=== PATIENT | female | born 1930 | race Caucasian/White ===

== ENCOUNTER 2020-07-18 15:12 | Inpatient (IN) | payer MEDICARE, OTHER ==
[~2020-07-18] VITALS: Ht 152.4 cm; Wt 54.8 kg
[2020-07-18] MEDS ORDERED: LOPID 600M600 MG/TAB PO (20:06)
[2020-07-18] MEDS ORDERED: HYDRODIURIL50 MG PO (20:07)
[2020-07-18] MEDS ORDERED: MINIPRESS 1M1 MG/CAP PO (20:10)
[2020-07-18] MEDS ORDERED: ALDACTONE 25MG25 M1 PO (20:10)
[2020-07-18] MEDS ORDERED: COUMADIN 2MG2 MG/TAB PO (20:13)
[2020-07-18] MEDS ORDERED: TYLENOL 325MG325 MG PO (20:18)
[2020-07-18] MEDS ORDERED: TYLENOL W/COD1 UDTAB PO (20:20)
[2020-07-18] MEDS ORDERED: ASPIRIN 81M81 MG/TA2 PO (20:53)
[2020-07-18] MEDS ORDERED: LIPITOR20 MG PO (20:53)
[2020-07-18] MEDS ORDERED: PLAVIX 75MG TAB75 MG PO (20:54)
[2020-07-18] MEDS ORDERED: NITROSTAT0.4 MG/TAB SL (20:55)
[2020-07-18] MEDS ORDERED: ZOFRAN INJ4 MG/2 ML IV (20:56)
[2020-07-18] MEDS ORDERED: ICAPS TABLET1 EACH PO (20:57)
[2020-07-18] MEDS ORDERED: MELATONIN1 MG PO (20:58)
[2020-07-18 21:00] VITALS: BP 151/71; PULSE 71; TEMP 98.2
[2020-07-18 23:19] VITALS: BP 147/51; PULSE 67; TEMP 97.6
[2020-07-19] VITALS (21 sets, daily range): BP systolic 126–176; BP diastolic 49–88; PULSE 53–65; TEMP 97.6–98.4
[2020-07-19 06:50] LABS: BASO # 0.1 (0.0-0.2); BASO % 0.9 % (0.0-2.0); EOS # 0.3 (0.0-0.7); GRAN # 9.2 (1.4-6.5); GRAN % 64.9 % (42.2-75.2); HEMOGLOBIN 13.5 g/dl (12.5-16.0); LYMPH # 3.6 (1.2-3.4); LYMPH % 25.1 % (20.0-51.0); MEAN CELL VOLUME 93 fl (80.0-100.0); MEAN CORPUSCULAR HEMOGLOBIN 31 pg (27.0-31.0); MEAN CORPUSCULAR HGB CONC 33 g/dl (33.0-37.0); MONO % 6.7 % (1.7-9.3); PLATELET COUNT 227 K/mm3 (130-400); REDCELL DISTRIBUTION WIDTH-CV 13.1 % (11.5-14.5)
[2020-07-19 06:56] LABS: ALBUMIN 4.5 gm/dL (3.5-5.0); BILIRUBIN,TOTAL 0.7 mg/dL (0.0-1.0); CALCIUM 9.9 mg/dL (8.4-10.2); CREATININE, serum 1.67 (0.52-1.25); POTASSIUM 4.3 mmol/L (3.4-5.0); TOTAL PROTEIN 7.7 gm/dL (6.4-8.2)
[2020-07-19 07:20] LABS: INR 1.9 (0.8-3.0); PROTHROMBIN TIME 21.9 SECONDS (9.7-12.8)
[2020-07-19 07:23] LABS: PARTIAL THROMBOPLASTIN TIME 39.8 SECONDS (26.0-37.0)
[2020-07-20 00:43] VITALS: BP 124/37; PULSE 58; TEMP 98.1
[2020-07-20 04:21] VITALS: BP 126/56; PULSE 65; TEMP 98
[2020-07-20 04:55] VITALS: BP 126/56; PULSE 65; TEMP 98
[2020-07-20 07:18] LABS: CALCIUM 9.2 mg/dL (8.4-10.2); CREATININE, serum 1.5 (0.52-1.25); POTASSIUM 4.1 mmol/L (3.4-5.0)
[2020-07-20 08:00] VITALS: BP 129/73; PULSE 62; TEMP 97.9
[2020-07-20] MEDS ORDERED: COREG 3.123.125 MG/T PO (10:19)
[2020-07-20] MEDS ORDERED: PLAVIX 75MG TAB75 MG PO (10:19)
[2020-07-20] MEDS ORDERED: ASPIRIN 81M81 MG/TA2 PO (10:20)
[2020-07-20] MEDS ORDERED: LIPITOR20 MG PO (10:21)
[2020-07-20 11:55] VITALS: BP 122/80; PULSE 66; TEMP 98.2
== END 2020-07-20 12:00 | disposition home or self-care (01) | DRG 246 ==
LOC: MEDICAL 15:12
PROVIDERS: Hospitalist; Physician Assistant; ADMIT Internal Medicine
PROC: 027034Z Dilation of Coronary Artery, One Artery with Drug-eluting Intraluminal Device, Percutaneous Approach (ICD-10-PCS; principal; 2020-07-18)
PROC: 4A023N7 Measurement of Cardiac Sampling and Pressure, Left Heart, Percutaneous Approach (ICD-10-PCS; 2020-07-18)
PROC: B211YZZ Fluoroscopy of Multiple Coronary Arteries using Other Contrast (ICD-10-PCS; 2020-07-18)
DX: I21.4 Non-ST elevation (NSTEMI) myocardial infarction (principal); I50.21 Acute systolic (congestive) heart failure; N18.30 Chronic kidney disease, stage 3 unspecified; E78.5 Hyperlipidemia, unspecified; I25.10 Atherosclerotic heart disease of native coronary artery without angina pectoris; I11.0 Hypertensive heart disease with heart failure; I65.21 Occlusion and stenosis of right carotid artery; Z95.5 Presence of coronary angioplasty implant and graft; Z79.01 Long term (current) use of anticoagulants; Z87.891 Personal history of nicotine dependence; Z88.0 Allergy status to penicillin
CPT/HCPCS: 99222-AI; 99232-AI; 99239; C1725; C1769; C1874; C1887; C9600; J1644; J2250; J3010; J7030

== ENCOUNTER 2020-09-23 10:16 | Inpatient (IN) | payer MEDICARE, OTHER ==
[~2020-09-23] VITALS: Ht 152.4 cm; Wt 55.1 kg
[~2020-09-23 10:16] MED LIST: ALDACTONE 25MG25 M1 PO; ASPIRIN 81M81 MG/TA2 PO; COREG 3.123.125 MG/T PO; COUMADIN 2MG2 MG/TAB PO; HYDRODIURIL50 MG PO; ICAPS TABLET1 EACH PO; LIPITOR20 MG PO; LOPID 600M600 MG/TAB PO; MELATONIN1 MG PO; MINIPRESS 1M1 MG/CAP PO; NITROSTAT0.4 MG/TAB SL; PLAVIX 75MG TAB75 MG PO; TYLENOL 325MG325 MG PO; TYLENOL W/COD1 UDTAB PO; ZOFRAN INJ4 MG/2 ML IV
[2020-09-23 10:41] LABS: BASO # 0.1 (0.0-0.2); BASO % 0.9 % (0.0-2.0); EOS # 0.3 (0.0-0.7); EOS % 2.5 % (0-4.0); GRAN # 6.9 (1.4-6.5); GRAN % 65.8 % (42.2-75.2); HEMATOCRIT 41.5 % (37.0-47.0); HEMOGLOBIN 13.7 g/dl (12.5-16.0); LYMPH # 2.5 (1.2-3.4); MEAN CELL VOLUME 95 fl (80.0-100.0); MEAN CORPUSCULAR HEMOGLOBIN 31 pg (27.0-31.0); MEAN CORPUSCULAR HGB CONC 33 g/dl (33.0-37.0); MEAN PLATELET VOLUME 12.3 fl (7.4-10.4); MONO # 0.7 (0.1-0.6); MONO % 6.5 % (1.7-9.3); PLATELET COUNT 216 K/mm3 (130-400); RED BLOOD COUNT 4.38 M/mm3 (4.10-5.30); REDCELL DISTRIBUTION WIDTH-CV 12.6 % (11.5-14.5)
[2020-09-23 10:54] LABS: INR 1.1 (0.8-3.0); PROTHROMBIN TIME 12.4 SECONDS (9.7-12.8)
[2020-09-23 10:56] LABS: PARTIAL THROMBOPLASTIN TIME 29.7 SECONDS (26.0-37.0)
[2020-09-23 11:01] LABS: ALBUMIN 4.7 gm/dL (3.5-5.0); BILIRUBIN,TOTAL 0.8 mg/dL (0.0-1.0); CALCIUM 9.9 mg/dL (8.4-10.2); CREATININE, serum 1.89 (0.52-1.25); POTASSIUM 3.8 mmol/L (3.4-5.0)
[2020-09-23 11:15] LABS: TROPONIN-I 0.195 ng/mL (0.000-0.035)
[2020-09-23 13:23] VITALS: BP 173/82; PULSE 58; TEMP 96.4
[2020-09-23] MEDS ORDERED: LASIX 20MG TABL20 MG PO ×2 (13:57→13:58)
[2020-09-23] MEDS ORDERED: COREG 6.256.25 MG/TA PO (14:16)
[2020-09-23 15:57] VITALS: BP 149/59; PULSE 51
--- NOTE | 2020-09-23 19:00 | NUR ---
Patient admittied to floor around 1330. Oriented to room. She has had heparin infusing at ordered rate. Last Hepxa was elevted. Turned drip off and reduced rate to 5ml an hour per protocol. Her IV in her Left wrist infiltrated earlier and now she has a large bruise to her left hand. New IV to right forearm. Her daughter was updated this evening. Dr Andrade seen patient and stated plans to just observe her for tonight. No other changes at this time. Call light within reach. Bed alarm on.
--- NOTE | 2020-09-23 19:21 | NUR ---
HOSPITALIST GAYATRI TRAN NOTIFIED AT 191 OF CRITICAL TROPONIN, ORDER TO CALL TIP STITCHER DENTAL AIDE. TIP STITCHER DENTAL AIDE DR. HALL NOTIFIED AT 192. ORDER FROM DR. HALL TO MAKE PATIENT NPO AT MIDNIGHT. ORDER COMPLETED.
[2020-09-23 20:02] VITALS: BP 136/60; PULSE 64; TEMP 97.8
[2020-09-23 23:33] LABS: ARTERIAL BLD GAS O2 SATURATION 95.8 % (92-100); ARTERIAL BLD GAS TCO2 CT 27.6; ARTERIAL BLOOD GAS BASE EXCESS 4.1 (-2-2); ARTERIAL BLOOD GAS HCO3 26.5 meq/L (22-26); ARTERIAL BLOOD GAS PCO2 33.1 mmHg (35-45); ARTERIAL BLOOD GAS PO2 75.6 mmHg (80-100); ARTERIAL BLOOD GAS pH 7.52 (7.35-7.45)
[2020-09-23 23:46] LABS: HEMOGLOBIN 12.6 g/dl (12.5-16.0); MEAN CELL VOLUME 92 fl (80.0-100.0); MEAN CORPUSCULAR HEMOGLOBIN 32 pg (27.0-31.0); MEAN CORPUSCULAR HGB CONC 34 g/dl (33.0-37.0); MEAN PLATELET VOLUME 12.4 fl (7.4-10.4); PLATELET COUNT 207 K/mm3 (130-400); RED BLOOD COUNT 3.99 M/mm3 (4.10-5.30); REDCELL DISTRIBUTION WIDTH-CV 12.8 % (11.5-14.5)
[2020-09-23 23:52] LABS: HEMATOCRIT 36.7 % (37.0-47.0)
[2020-09-23 23:52] LABS: CALCIUM 9.8 mg/dL (8.4-10.2); CREATININE, serum 1.82 (0.52-1.25); POTASSIUM 3.5 mmol/L (3.4-5.0)
[2020-09-23 23:56] LABS: INR 1.1 (0.8-3.0); PROTHROMBIN TIME 12.5 SECONDS (9.7-12.8)
[2020-09-23 23:58] LABS: PARTIAL THROMBOPLASTIN TIME 56.5 SECONDS (26.0-37.0)
[2020-09-24] VITALS (292 sets, daily range): BP systolic 119–153; BP diastolic 46–81; PULSE 51–67; TEMP 97.5–98.5; O2SAT 77–100
--- NOTE | 2020-09-24 00:48 | NUR ---
AT 0034 NOTIFIED GAYATRI TRAN OF CRITICAL D-DIMER OF 239. NO NEW ORDERS AT THIS TIME.
--- NOTE | 2020-09-24 04:14 | NUR ---
AT 0123 ON 09/24/20 PATIENT REPORTED SHE WAS HAVING CHEST PAIN. RAISED THE HEAD OF PATIENTS BED AND SHE STATED THAT MADE HER FEEL BETTER. V/S TAKEN AND WERE WNL, JOSE FRANCISCO TRAN NOTIFIED AND SAID TO GIVE THE PATIENT A NITRO. NITRO ADMINISTERED AT 0128. 0150 PATIENT STATED SHE WAS FEELING BETTER AND WANTED TO GET SOME REST.
[2020-09-24 06:28] LABS: BASO # 0.1 (0.0-0.2); EOS # 0.5 (0.0-0.7); EOS % 5.2 % (0-4.0); GRAN # 5.7 (1.4-6.5); GRAN % 56.6 % (42.2-75.2); HEMATOCRIT 37.6 % (37.0-47.0); HEMOGLOBIN 12.5 g/dl (12.5-16.0); LYMPH # 2.9 (1.2-3.4); LYMPH % 29.3 % (20.0-51.0); MEAN CELL VOLUME 93 fl (80.0-100.0); MEAN CORPUSCULAR HEMOGLOBIN 31 pg (27.0-31.0); MEAN CORPUSCULAR HGB CONC 33 g/dl (33.0-37.0); MEAN PLATELET VOLUME 12.8 fl (7.4-10.4); MONO # 0.8 (0.1-0.6); MONO % 7.6 % (1.7-9.3); PLATELET COUNT 206 K/mm3 (130-400); RED BLOOD COUNT 4.05 M/mm3 (4.10-5.30); REDCELL DISTRIBUTION WIDTH-CV 12.8 % (11.5-14.5)
[2020-09-24 06:38] LABS: CALCIUM 9.6 mg/dL (8.4-10.2); CREATININE, serum 1.78 (0.52-1.25); POTASSIUM 4.3 mmol/L (3.4-5.0)
--- NOTE | 2020-09-24 07:56 | NUR ---
Assessment complete. Patient sitting up in bed at this time. Used the restroom, ambulated well via SB assist. States she does not have chest pain unless she is laying down or right after she gets back into bed after moving around. She currently states that he pain has subsided. No SOB. She is aware of her POC. Heparin drip continues to run at this time. Will continue to monitor. Call light is in reach.
--- NOTE | 2020-09-24 09:30 | NUR ---
Patient experiencing chest pain at this time. On entry patient is holding chest and is visibly feeling short of breath. PRN nitro was provided to the patient. Chest pain subsided within 5 mins of administration and patient became comfortable. Vitals were stable at thsi time. Informed patient to report the return of this pain. No further needs. Will continue to monitor. Call light is in reach.
--- NOTE | 2020-09-24 10:21 | NUR ---
FRANCHESCA met with the patient to discuss discharge plan. The patient lives alone in [place]. Her 14 days ago. She states that her daughter, Shireen (ph#[phone]), and son-in-law live 10 miles away from her. She reports independence with ADLs and does not have any DME. She has been receiving cardiac rehab at [facility]. The patient's PCP is Dr. Carter Recinos and she receives her medications from [facility]. She reports no difficulties obtaining her meds. The patient's DPOA-HC is in EMR and it designates her daughter, Shireen, and son-in-law, Ulices. SW discussed continuing cardiac rehab vs home health. The patient states that she is unsure what she wants to do right now and would like to wait until after she has her cardiac cath to decide. FRANCHESCA then contacted and reviewed the d/c plan with the patient's daughter, Shireen. Shireen reports that she would prefer for the patient to stop cardiac rehab for now and do home health instead. Shireen plans to talk to the patient about this. FRANCHESCA will need to follow up with the patient.
--- NOTE | 2020-09-24 13:18 | NUR ---
Patient has had 2 episodes of chest pain with in the last hour. PRN nitro was given each time and has done well minimizing pain. Per cathode washer she should be going down to her procedure soon. Will continue to monitor.
--- NOTE | 2020-09-24 13:30 | NUR ---
Patient left floor for heart cath at this time. PRn Nitro has been provided to the patient for chest pain and additional 2 times since this morning. SHe states she thinks it was getting worse and that the nitro was taking a little bit longer to work. laborer beam house RN Issa was aware of the current chest pain. Preprocedure sodium bicarb was hung at 170 for first hour then 60 for the remaining time before she left the floor. Hepxa was delayed coming back, KIARA Parsons aware and stated he would speak Dr. Andrade about whether patient would need to be rebolused with heparin prior to procedure. Patient left the floor I was not told to rebolus the patient prior to her leaving for her cath procedure.
--- NOTE | 2020-09-24 14:02 | NUR ---
SEE MERGE DOCUMENTATION FOR MEDICATION ADMINISTRATION TIMES AND INTRA/POST PROCEDURE SEDATION ASSESSMENTS.
--- NOTE | 2020-09-24 14:57 | NUR ---
Amanda CRAIG called at this time for report on this patient. Report was given. belongings will be transferred done RORY.
--- NOTE | 2020-09-24 15:00 | NUR ---
PATIENT RECEIVED FROM MIXER DRIVER. REPORT RECEIVED FROM KIARA CLAUDIO ON MEDICAL FLOOR AND KIARA MURPHY FROM MIXER DRIVER. BOTH RIGHT FEMORAL AND RIGHT RADIAL SITES EVALUATED UPON ARRIVAL. ANGIOMAX CURRENTLY INFUSING. NS INFUSING AT 100 CC/HR. BOTH SITES FROM HEART CATH AND SOFT, CLEAN AND DRY. PATIENT HAS NO COMPLAINTS AND VS WNL. WILL CONTINUE TO MONITOR. CALL LIGHT WITHIN REACH. FLAT TIME INSTRUCTIONS REVIEWED WITH PATIENT.
--- NOTE | 2020-09-24 19:30 | NUR ---
Received bedside report from KIARA Patel. All medications verified and all questions answered. VSS. Will resume care at this time.
--- NOTE | 2020-09-24 19:45 | NUR ---
REPORT GIVEN TO STEPAN RN
[2020-09-25] VITALS (353 sets, daily range): BP systolic 111–145; BP diastolic 42–68; PULSE 52–68; TEMP 98.3–98.6; O2SAT 90–100
[2020-09-25 05:05] LABS: BASO # 0.1 (0.0-0.2); BASO % 0.7 % (0.0-2.0); EOS # 0.6 (0.0-0.7); EOS % 5.9 % (0-4.0); GRAN # 6.5 (1.4-6.5); HEMOGLOBIN 12.2 g/dl (12.5-16.0); LYMPH # 2.6 (1.2-3.4); LYMPH % 24.4 % (20.0-51.0); MEAN CELL VOLUME 93 fl (80.0-100.0); MEAN CORPUSCULAR HEMOGLOBIN 32 pg (27.0-31.0); MEAN CORPUSCULAR HGB CONC 34 g/dl (33.0-37.0); MEAN PLATELET VOLUME 12.6 fl (7.4-10.4); MONO # 0.8 (0.1-0.6); MONO % 7.8 % (1.7-9.3); PLATELET COUNT 191 K/mm3 (130-400); RED BLOOD COUNT 3.84 M/mm3 (4.10-5.30); REDCELL DISTRIBUTION WIDTH-CV 12.7 % (11.5-14.5)
[2020-09-25 05:10] LABS: HEMATOCRIT 35.7 % (37.0-47.0)
[2020-09-25 05:12] LABS: CALCIUM 9.3 mg/dL (8.4-10.2); CREATININE, serum 1.77 (0.52-1.25); POTASSIUM 3.9 mmol/L (3.4-5.0)
--- NOTE | 2020-09-25 07:00 | NUR ---
REPORT RECEIVED FROM STEPAN CRAIG. PT EATING BREAKFAST. NO IVF RUNNING. RIGHT GROIN SITE C/D/I. PT DENIES CP. WILL CONTINUE TO MONITOR.
[2020-09-25 09:42] LABS: CHOLESTEROL RISK RATIO 4.5
--- NOTE | 2020-09-25 09:59 | NUR ---
ATTEMPTED TO CALL ECHO WITH NO ANSWER. CALL PLACED TO XRAY, THEY STATE THEY WILL SEE IF SOMEONE IS ON FOR ECHO AND GET BACK TO ME.
[2020-09-25] MEDS ORDERED: LIPITOR 80MG80 MG PO (11:20)
--- NOTE | 2020-09-25 13:55 | NUR ---
FRANCHESCA met with patient prior to discharge to discuss home health wishes. Patient would still like to receive home health services for physical therapy and occupational therapy. Patient was give list of providers servicing her area. FRANCHESCA will send referrals to agencies of choice with notification to contact patient at home.
--- NOTE | 2020-09-25 14:00 | NUR ---
DISCHARGE INSTRUCTIONS DISCUSSED WITH PT. DISCUSSED MED CHANGES AT LENGTH. PT GIVEN STENT AND ANGIOSEAL INFORMATION. ALL QUESTIONS ANSWERED. PT WHEELED OUT FOR DISCHARGE WITH DAUGHTER. PT HAS ALL PAPERWORK AND BELONGINGS.
[2020-09-25] MEDS ORDERED: NITROSTAT0.4 MG/TAB SL (14:01)
--- NOTE | 2020-09-27 09:41 | NUR ---
drapery worker contacted Almaz at [facility] and confirmed that they received home health orders.
== END 2020-09-25 14:00 | disposition home health service (06) | DRG 247 ==
LOC: COL.ER 10:16 → MEDICAL 11:57 → ICU 09-24 15:05
PROVIDERS: Family Medicine; Internal Medicine Adult Congenital Heart Disease; Internal Medicine Interventional Cardiology; Physician Assistant; ADMIT Hospitalist
PROC: 027034Z Dilation of Coronary Artery, One Artery with Drug-eluting Intraluminal Device, Percutaneous Approach (ICD-10-PCS; principal; 2020-09-23)
PROC: 4A023N7 Measurement of Cardiac Sampling and Pressure, Left Heart, Percutaneous Approach (ICD-10-PCS; 2020-09-23)
PROC: B2111ZZ Fluoroscopy of Multiple Coronary Arteries using Low Osmolar Contrast (ICD-10-PCS; 2020-09-23)
DX: I21.4 Non-ST elevation (NSTEMI) myocardial infarction (principal); I25.110 Atherosclerotic heart disease of native coronary artery with unstable angina pectoris; I12.9 Hypertensive chronic kidney disease with stage 1 through stage 4 chronic kidney disease, or unspecified chronic kidney disease; N18.9 Chronic kidney disease, unspecified; E78.5 Hyperlipidemia, unspecified; I65.21 Occlusion and stenosis of right carotid artery; Z95.5 Presence of coronary angioplasty implant and graft; Z79.82 Long term (current) use of aspirin; Z87.891 Personal history of nicotine dependence; Z88.0 Allergy status to penicillin; Z88.1 Allergy status to other antibiotic agents
CPT/HCPCS: 99222-AI; 99232-AI; 99239; C1760; C1769; C1874; C1887; C1894; C9600; J0583; J1644; J1940; J2250; J3010; J7030; Q9967